=== PATIENT | female | born 1985 | race Caucasian/White ===

== ENCOUNTER 2020-03-26 06:00 | Inpatient (IN) ==
[2020-03-26] MEDS ORDERED: Naloxone 0.4 MG/ML INJ IVP PRN (06:08)
[2020-03-26] MEDS ORDERED: Metoclopramide 10 MG/2 ML VIAL IVP PRN ×2 (06:08→22:32)
[2020-03-26] MEDS ORDERED: Lidocaine 1% 20 ML MDV INFILT PRN (06:08)
[2020-03-26] MEDS ORDERED: *HR* FentaNYL (PF) 100 MCG/2 ML VIAL IVP PRN (06:08)
[2020-03-26] MEDS ORDERED: Ondansetron 4 MG/2 ML VIAL IVP PRN ×2 (06:08→22:32)
[2020-03-26] MEDS ORDERED: Famotidine 20 MG/2 ML VIAL IVP PRN (06:08)
[2020-03-26] MEDS ORDERED: Oxytocin 20 units/ LR 1000 mL 20 UNIT/1,000 ML BAG IVC SCH ×2 (06:15→22:32)
[2020-03-26] MEDS: Ringers Solution, Lactated 1,000 ML IVC SCH ×3 (07:02→18:27)
[2020-03-26 07:04] LABS: Basophils % 0.4 %; Eosinophils # 0.1 K/mcL (0.0-0.6); Eosinophils % 1.1 %; Hematocrit 34.7 % (35.3-44.9); Hemoglobin 11.8 g/dL (11.5-15.4); Immature Granulocytes % 1.7 % (0-4); Lymphocytes # 2.6 K/mcL (0.6-4.6); Lymphocytes % 23.1 %; Mean Corpuscular Hemoglobin 29.7 pg (28.0-33.3); Mean Corpuscular Volume 87.4 fL (83.0-100.0); Mean Platelet Volume 9.8 fL (9.4-12.4); Monocytes # 1.2 K/mcL (0.0-1.3); Monocytes % 10.7 %; Neutrophils # 7.1 K/mcL (1.6-8.9); Platelet Count 250 K/mcL (140-400); Red Blood Count 3.97 M/mcL (3.82-4.97); Red Cell Distribution Width 13.2 % (11.5-14.5); White Blood Count 11.3 K/mcL (4.3-11.1)
[2020-03-26 09:27] LABS: Amphetamine Screen,Urine Negative ng/mL (Cutoff=1000); Barbiturate Screen,Urine Negative ng/mL (Cutoff=200); Benzodiazepines Screen,Urine Negative ng/mL (Cutoff=200); Cannabinoid Screen,Urine Negative ng/mL (Cutoff = 50); Cocaine Screen,Urine Negative ng/mL (Cutoff= 300); Opiate Screen,Urine Negative ng/mL (Cutoff=300); Phencyclidine Screen,Urine Negative ng/mL (Cutoff=25)
[2020-03-26] MEDS ORDERED: EPHEDrine 50 MG/ML VIAL IVP PRN (18:06)
[2020-03-26] MEDS ORDERED: Epidural Premix (fent/bupiv) 110 ML EP ONE (18:10)
[2020-03-26] MEDS ORDERED: Epidural Premix (fent/bupiv) 110 ML EP SCH (18:15)
[2020-03-26] MEDS ORDERED: *HR* Oxytocin 10 UNIT/ML VIAL IM ONE (19:27)
[2020-03-26] MEDS ORDERED: Lidocaine/EPI 1:200k 2% PF 20 ML VIAL ONE (19:30)
[2020-03-26] MEDS ORDERED: Ringers Solution, Lactated 1,000 ML ONE (19:36)
[2020-03-26] MEDS ORDERED: Dexamethasone 4 MG/ML VIAL ONE (19:37)
[2020-03-26] MEDS ORDERED: Ondansetron 4 MG/2 ML VIAL ONE (19:37)
[2020-03-26] MEDS ORDERED: Acetaminophen IV 1,000 MG/100 ML INFUS..BTL ONE (19:45)
[2020-03-26] MEDS ORDERED: *HR* Morphine Sulfate/PF 10 MG/10 ML AMPUL ONE (19:57)
[2020-03-26] MEDS ORDERED: *HR* OxyCODONE/APAP 5/325 TABLET PO PRN (22:32)
[2020-03-26] MEDS ORDERED: Simethicone 80 MG TAB.CHEW PO PRN (22:32)
[2020-03-26] MEDS ORDERED: Sennosides 8.6 MG TABLET PO PRN (22:32)
[2020-03-27] MEDS: metroNIDAZOLE 500 MG TABLET PO SCH ×4 (05:07→20:23)
[2020-03-27] MEDS: ceFAZolin 1,000 MG in Water for inj. (sterile) 10 ML IVP SCH ×2 (05:15→14:00)
[2020-03-27 05:56] LABS: Basophils % 0.3 %; Eosinophils # 0.1 K/mcL (0.0-0.6); Eosinophils % 0.4 %; Hematocrit 30.1 % (35.3-44.9); Lymphocytes # 2.1 K/mcL (0.6-4.6); Lymphocytes % 15.8 %; Mean Corpuscular HGB Conc 33.2 g/dL (31.6-35.5); Mean Corpuscular Hemoglobin 29.9 pg (28.0-33.3); Mean Corpuscular Volume 89.9 fL (83.0-100.0); Mean Platelet Volume 9.7 fL (9.4-12.4); Monocytes # 1.1 K/mcL (0.0-1.3); Monocytes % 8.1 %; Platelet Count 203 K/mcL (140-400); Red Blood Count 3.35 M/mcL (3.82-4.97); Red Cell Distribution Width 13.4 % (11.5-14.5); Segmented Neutrophils % 74.4 %; White Blood Count 13.4 K/mcL (4.3-11.1)
[2020-03-27] MEDS: Prenatal Vit/FA 1 EACH TABLET PO SCH (08:07)
[2020-03-27] MEDS: Simethicone 80 MG TAB.CHEW PO SCH (14:01)
[2020-03-27] MEDS ORDERED: ceFAZolin 1,000 MG in Water for inj. (sterile) 10 ML IVP SCH (22:00)
[2020-03-27] MEDS: Ibuprofen 600 MG TABLET PO PRN (22:19)
[2020-03-28] MEDS: Simethicone 80 MG TAB.CHEW PO SCH (05:27)
[2020-03-28 07:45] VITALS: BP 118/83
[2020-03-28] MEDS: Prenatal Vit/FA 1 EACH TABLET PO SCH (08:28)
[2020-03-28] MEDS: metroNIDAZOLE 500 MG TABLET PO SCH (08:29)
[2020-03-28] MEDS: Ibuprofen 600 MG TABLET PO PRN (09:32)
== END 2020-03-28 09:35 | disposition home or self-care (01) | DRG 788 ==
LOC: 1NENULAB 06:06 → 1NENUOBS 22:31
PROVIDERS: ADMIT Obstetrics & Gynecology; ATTEND Obstetrics & Gynecology